=== PATIENT | female | born 1975 | race Caucasian/White ===

== ENCOUNTER 2024-07-26 11:50 | Emergency (ER) | payer MEDICARE, OTHER ==
[2024-07-26 12:05] VITALS: RESP 18; TEMP 98
--- NOTE | 2024-07-26 13:13 | XR ---
EXAMINATION TYPE: XR ankle complete LT DATE OF EXAM: 07/26/2024 COMPARISON: NONE HISTORY: Pain TECHNIQUE: 3 views of the left ankle are submitted for evaluation. FINDINGS: There is no evidence for acute fracture or dislocation. Remote healed distal fibular fractu re. Post surgical changes with 2 screws involving the medial malleolus. Soft tissue swelling most pro nounced over the medial malleolus. Ankle mortise is intact. Small plantar calcaneal enthesophyte. IMPRESSION: 1. No evidence for acute fracture or dislocation. 2. Post surgical changes with 2 screws involving the medial malleolus. Remote healed distal fibular f racture. 3. Soft tissue swelling most pronounced over the medial malleolus. [facility], , 07/26/2024 1:11 PM
--- NOTE | 2024-07-26 13:15 | XR ---
EXAMINATION TYPE: XR knee complete LT DATE OF EXAM: 07/26/2024 1:06 PM INDICATION: Patient age:Female; 48 years old; Reason for study: pain; PHH. pain COMPARISON: None. TECHNIQUE: The Left knee(s) was examined in Frontal, lateral and oblique projections. FINDINGS: No evidence of any acute osseous pathology, or joint effusion is noted. Soft tissue swell ing along the medial aspect of the knee. IMPRESSION: 1. No acute osseous pathology. 2. Soft tissue swelling along the medial aspect of the knee. [facility], , 07/26/2024 1:12 PM
--- NOTE | 2024-07-26 13:20 | ED ---
Fall HPI - General Chief Complaint: Fall Stated Complaint: fall Time Seen by Provider: 07/26/24 11:54 Source: patient, family, EMS, RN notes reviewed Mode of arrival: EMS - History of Present Illness Initial Comments: 48-year-old female presents emergency department via EMS for complaint of slip and fall. Patient states that she was stepping up over the curb caught her foot falling forward. She has a left knee abrasion up-to-date on tetanus no head injury no loss conscious. Patient states that she does have mild left ankle pain prior surgery. - Related Data Home Medications Medication Instructions Recorded Confirmed Albuterol Nebulized [Ventolin 2.5 mg INHALATION RT-QID PRN 07/26/24 07/26/24 Nebulized] Aspirin EC [Ecotrin Low Dose] 81 mg PO HS 07/26/24 07/26/24 Atorvastatin [Lipitor] 80 mg PO HS 07/26/24 07/26/24 Dulaglutide [Trulicity] 3 mg SQ FR 07/26/24 07/26/24 FLUoxetine HCL [PROzac] 20 mg PO BID-W/MEALS 07/26/24 07/26/24 Insulin Aspart Prot/Insuln Asp 75 unit SQ BID 07/26/24 07/26/24 [NovoLOG MIX 70-30 Flexpen] Levothyroxine Sodium [Synthroid] 50 mcg PO AC-BRKFST 07/26/24 07/26/24 Loratadine [Claritin] 10 mg PO HS PRN 07/26/24 07/26/24 Magnesium(Unknown Dose) 1 tab PO DAILY 07/26/24 07/26/24 Multivitamins, Thera [Multivitamin 1 tab PO DAILY 07/26/24 07/26/24 (formulary)] Psyllium Husk [Metamucil] 1.2 gm PO DAILY 07/26/24 07/26/24 Stool Softner(Unknown) 1 cap PO DAILY 07/26/24 07/26/24 Vitamin B-12(Unknown Dose) 2 tab PO DAILY 07/26/24 07/26/24 lisinopriL [Prinivil] 10 mg PO BID-W/MEALS 07/26/24 07/26/24 metFORMIN HCL [Glucophage] 1,000 mg PO BID-W/MEALS 07/26/24 07/26/24 Allergies Allergy/AdvReac Type Severity Reaction Status Date / Time No Known Allergies Allergy Verified 07/26/24 13:32 Review of Systems ROS Statement: Those systems with pertinent positive or pertinent negative responses have been documented in the HPI. ROS Other: All systems not noted in ROS Statement are negative. Past Medical History Past Medical History: Unable to Obtain History of Any Multi-Drug Resistant Organisms: Unobtainable Past Surgical History: Unable to Obtain Past Psychological History: Unable to Obtain Smoking Status: Unknown if ever smoked Past Alcohol Use History: Unable to Obtain Past Drug Use History: Unable to Obtain General Exam Limitations: no limitations General appearance: alert, in no apparent distress Head exam: Present: atraumatic, normocephalic, normal inspection Neck exam: Present: normal inspection, full ROM. Absent: tenderness, meningismus, lymphadenopathy Respiratory exam: Present: normal lung sounds bilaterally. Absent: respiratory distress, wheezes, rales, rhonchi, stridor Cardiovascular Exam: Present: regular rate, normal rhythm, normal heart sounds. Absent: systolic murmur, diastolic murmur, rubs, gallop, clicks Extremities exam: Present: other (Left knee anterior abrasion noted, with pain with range of motion neurovascular intact mild left ankle tenderness.) Course Vital Signs 07/26/24 12:01 Temperature 98 F Pulse Rate 94 Respiratory 18 Rate Blood Pressure 177/99 O2 Sat by Pulse 98 Oximetry Medical Decision Making - Medical Decision Making Was pt. sent in by a medical professional or institution (, PA, STEREOTYPER HELPER, urgent care, hospital, or half-way...) When possible be specific @ -No Did you speak to anyone other than the patient for history (EMS, parent, family, police, friend...)? What history was obtained from this source @ -No Did you review nursing and triage notes (agree or disagree)? Why? @ -I reviewed and agree with nursing and triage notes Were old charts reviewed (outside hosp., previous admission, EMS record, old EKG, old radiological studies, urgent care reports/EKG's, half-way records)? Report findings @ -No old charts were reviewed Differential Diagnosis (chest pain, altered mental status, abdominal pain women, abdominal pain men, vaginal bleeding, weakness, fever, dyspnea, syncope, headache, dizziness, GI bleed, back pain, seizure, CVA, palpatations, mental health, musculoskeletal)? @ -Fall, knee contusion, leg fracture, ankle fracture ankle sprain EKG interpreted by me (3pts min.). @ -None X-rays interpreted by me (1pt min.). @ -X-ray left knee no acute fracture or malalignment, soft tissue swelling X-ray left ankle no acute fracture hardware stable. CT interpreted by me (1pt min.). @ -None done U/S interpreted by me (1pt. min.). @ -None done What testing was considered but not performed or refused? (CT, X-rays, U/S, labs)? Why? @ -None What meds were considered but not given or refused? Why? @ -None Did you discuss the management of the patient with other professionals (professionals i.e. , PA, STEREOTYPER HELPER, lab, RT, psych nurse, neonatal social worker, granulator operator, teacher, corporate compliance officer, lining caser)? Give summary @ -No Was smoking cessation discussed for >3mins.? @ -No Was critical care preformed (if so, how long)? @ -No Were there social determinants of health that impacted care today? How? (Homelessness, low income, unemployed, alcoholism, drug addiction, transportation, low edu. Level, literacy, decrease access to med. care, halfway, rehab)? @ -No Was there de-escalation of care discussed even if they declined (Discuss DNR or withdrawal of care, Hospice)? DNR status @ -No What co-morbidities impacted this encounter? (DM, HTN, Smoking, COPD, CAD, Cancer, CVA, ARF, Chemo, Hep., AIDS, mental health diagnosis, sleep apnea, morbid obesity)? @ -None Was patient admitted / discharged? Hospital course, mention meds given and route, prescriptions, significant lab abnormalities, going to OR and other pertinent info. @ -[Discharge patient presented after a fall. Patient has left knee, ankle contusion and abrasion. Patient is discharged in stable condition. Undiagnosed new problem with uncertain prognosis? @ -No Drug Therapy requiring intensive monitoring for toxicity (Heparin, Nitro, Insulin, Cardizem)? @ -No Were any procedures done? @ -No Diagnosis/symptom? @ -Left knee abrasion, contusion Acute, or Chronic, or Acute on Chronic? @Acute Uncomplicated (without systemic symptoms) or Complicated (systemic symptoms)? @ -Uncomplicated Side effects of treatment? @ -No Exacerbation, Progression, or Severe Exacerbation? @ -No Poses a threat to life or bodily function? How? (Chest pain, [place], [place], pneumonia, PE, COPD, DKA, ARF, appy, cholecystitis, CVA, Diverticulitis, Homicidal, Suicidal, threat to staff... and all critical care pts) @ -No Disposition Clinical Impression: Fall, Contusion of left knee, Ankle pain, left Disposition: HOME SELF-CARE Condition: Stable Instructions (If sedation given, give patient instructions): Knee Pain (ED) Additional Instructions: Please return to the Emergency Department if symptoms worsen or any other concerns. Is patient prescribed a controlled substance at d/c from ED?: No Referrals: None,Stated [REFERRING] - 1-2 days Time of Disposition: 13:19
[2024-07-26] MEDS: BACITRACIN OINT 1 EACH PACKET TOPICAL ONE (13:40)
[2024-07-26 13:45] VITALS: BP 155/84; PULSE 91
== END 2024-07-26 14:01 | disposition home or self-care (01) ==
LOC: EC 11:50 → EEVIPCON 11:50 → EC 14:01
DX: S80.02XA Contusion of left knee, initial encounter (principal); M25.572 Pain in left ankle and joints of left foot; W01.0XXA Fall on same level from slipping, tripping and stumbling without subsequent striking against object, initial encounter
CPT/HCPCS: 99283